=== PATIENT | female | born 1980 | race Caucasian/White ===

== ENCOUNTER 2017-09-09 09:33 | Emergency (ER) | payer OTHER ==
[~2017-09-09] VITALS: Ht 149.9 cm; Wt 51.5 kg
[2017-09-09 09:39] VITALS: BP 114/73; Ht 149.9 cm; Wt 51.5 kg
== END 2017-09-09 10:05 | disposition home or self-care (01) ==
LOC: ED 09:33
DX: J06.9 Acute upper respiratory infection, unspecified (principal)

== ENCOUNTER 2018-06-18 11:55 | Emergency (ER) | payer OTHER ==
[~2018-06-18] VITALS: Ht 149.9 cm; Wt 48.1 kg
[2018-06-18 12:34] VITALS: Ht 149.9 cm; Wt 48.1 kg
[2018-06-18 13:36] VITALS: BP 102/72
== END 2018-06-18 13:36 | disposition home or self-care (01) ==
LOC: ED 11:55
DX: H57.89 Other specified disorders of eye and adnexa (principal); T37.8X5A Adverse effect of other specified systemic anti-infectives and antiparasitics, initial encounter; B00.9 Herpesviral infection, unspecified; G56.00 Carpal tunnel syndrome, unspecified upper limb; Z88.8 Allergy status to other drugs, medicaments and biological substances; Y92.89 Other specified places as the place of occurrence of the external cause

== ENCOUNTER 2019-01-23 16:18 | Emergency (ER) | payer OTHER ==
[~2019-01-23] VITALS: Ht 152.4 cm; Wt 49.4 kg
[2019-01-23 16:23] VITALS: BP 118/73; Ht 152.4 cm; Wt 49.4 kg
== END 2019-01-23 17:15 | disposition home or self-care (01) ==
LOC: ED 16:18
DX: S09.8XXA Other specified injuries of head, initial encounter (principal); Z88.8 Allergy status to other drugs, medicaments and biological substances; W22.03XA Walked into furniture, initial encounter; Y93.89 Activity, other specified; Y92.89 Other specified places as the place of occurrence of the external cause; Y99.8 Other external cause status